=== PATIENT | female | born 2000 | race Caucasian/White ===

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

== ENCOUNTER 2022-09-20 12:19 | Emergency (ER) | payer BC, SELFPAY ==
--- NOTE | ~2022-09-20 | XR_ITS ---
XR chest 2V DATE: 09/20/2022 13:04 INDICATION: Left chest pain, shortness of breath TECHNIQUE: 2 views COMPARISON: None FINDINGS: Normal heart size. No hilar or mediastinal enlargement. No pulmonary infiltrate or consolid ation, pleural effusion or pulmonary vascular congestion or pneumothorax. Minimal thoracolumbar scoli osis. IMPRESSION: No active cardiopulmonary disease Reviewed, dictated and finalized at location B. OGRAPH TINTER
--- NOTE | 2022-09-20 12:26 | ECG_ITS ---
Measurements Intervals [place] Rate: 60 P: 55 NC: 133 QRS: 55 QRSD: 102 T: 58 QT: 361 QTc: 362 Interpretive Statements SINUS RHYTHM WITH MARKED SINUS ARRHYTHMIA BORDERLINE T WAVE ABNORMALITY- ANTERIOR LEADS BORDERLINE ECG NO PREVIOUS ECG AVAILABLE FOR COMPARISON Electronically Signed On 09-20-2022 12:31:41 LINE FIXER by Rodríguez Gresham D.O.
[2022-09-20 12:27] VITALS: BP 133/88; PULSE 70; RESP 18; TEMP 36.4; O2SAT 100
[2022-09-20 12:39] LABS: Basophils Percent Auto 0.3 % (0.2-1.2); Eosinophils Absolute Auto 0.1 K/mm3 (0-0.3); Eosinophils Percent Auto 1.3 % (0-4.4); Hematocrit 38.2 % (37.0-47.0); Hemoglobin 13.3 g/dL (12.0-15.0); Immature Granulocyte Absolute 0.02 K/mm3 (0.00-0.031); Immature Granulocyte Percent A 0.3 % (0-0.5); Lymphocytes Absolute Auto 2.47 K/mm3 (0.9-3.2); Mean Corpuscular HGB Conc 34.8 g/dl (32-36); Mean Corpuscular Hemoglobin 31.2 pg (26-34); Mean Corpuscular Volume 89.7 fl (80-100); Mean Platelet Volume 8.7 fl (7.4-10.4); Monocytes Absolute Auto 0.5 K/mm3 (0.1-0.6); Monocytes Percent Auto 6.3 % (2.6-8.5); Neutrophils Absolute Auto 4.9 K/mm3 (1.3-6.7); Neutrophils Percent Auto 60.8 % (45.5-73.1); Platelet Count Result 267 k/mm3 (150-375); Red Blood Count 4.26 M/mm3 (4.2-5.4); Red Cell Distribution Width 11.7 % (11.5-14.5)
[2022-09-20 12:51] LABS: INR 1.2; Prothrombin Time 14.7 Seconds (11.1-14.7)
[2022-09-20 12:52] LABS: Alanine Aminotransferase 14 U/L (6-35); Albumin Level 4.6 g/dL (3.5-5.1); Alkaline Phosphatase 52 U/L (38-126); Anion Gap 8 mmol/L (8-16); Aspartate Amino Transferase 19 U/L (14-36); Bilirubin,Total 0.6 mg/dL (0.2-1.3); Blood Urea Nitrogen 11 mg/dL (7-17); Calcium 9.3 mg/dL (8.4-10.2); Carbon Dioxide 29 mmol/L (22-30); Chloride 99 mmol/L (98-107); Estimated CRCL calculation 87 ml/min; Estimated Glomerular Filt Rate > 60; Glucose 108 mg/dL (65-110); Lipase 84 U/L (23-300); Partial Thromboplastin Time 34.2 SECONDS (22.3-36.8); Potassium 3.2 mmol/L (3.4-5.0); Sodium 136 mmol/L (137-145)
[2022-09-20 13:03] LABS: Troponin I < 0.012 ng/mL (0.000-0.034)
--- NOTE | 2022-09-20 14:00 | ED.CHESTPAIN ---
HPI - Chest Pain General Chief Complaint: Chest Pain Stated Complaint: chest pain Time Seen by Provider: 09/20/22 13:09 History of Present Illness HPI narrative: 22-year-old female presenting to the emergency department for evaluation of left-sided chest pain. Patient reports over the last few months she has had excessive weight loss and patient reports she has had almost daily vomiting. Patient does admit to smoking THC almost daily. Patient was educated on cannabinoid hyperemesis syndrome. Patient states over the last few days she has been having increased intermittent left-sided chest pressure. Patient denies any associated shortness of breath with this. Patient reports she does have past medical history of depression. Related Data Home Medications Medication Instructions Recorded Confirmed No Home Medications 05/01/21 05/01/21 Allergies Allergy/AdvReac Type Severity Reaction Status Date / Time No Known Allergies Allergy Verified 02/03/21 08:20 Review of Systems Review of Systems: CONSTITUTIONAL: Denies fever, chills, or sweats. EYES: Denies visual changes, redness, or discharge. ENT: Denies rhinorrhea, congestion, sore throat, or otalgia. CARDIOVASCULAR: See HPI RESPIRATORY: Denies cough or dyspnea. GASTROINTESTINAL: See HPI GENITOURINARY: Denies dysuria or hematuria. SKIN: Denies rash or itching. MUSCULOSKELETAL: Denies back pain, joint pain, or myalgia. NEUROLOGIC: Denies headache, numbness, or weakness. [facility] Past Medical History Medical History (Updated 09/20/22 @ 16:56 by Hakan Salazar MD) Depression Urinary tract infection Surgical History Surgical History No pertinent past surgical history Family History Family History Mother Recurrent urinary tract infection Social History Social History Smoking status: Current every day smoker Tobacco type: e-cigarettes/vaping Alcohol intake: never Substance use type: marijuana Other substance usage details: Marijuana socially Additional living arrangements comments: lives with boyfriend Gender identity (if verbalized by the patient): Female Sexual Orientation (if Verbalized by the Patient): Straight or Heterosexual Spiritual care concerns: No Exam Narrative: APPEARANCE: Well appearing, no pain, no distress, well-nourished. HEAD: normocephalic, atraumatic. EYES: PERRLA/EOMI, conjunctivae clear. NOSE: Normal no drainage THROAT: Pharynx clear, no exudate. NECK: Supple. No adenopathy, no masses. RESPIRATORY: Airway patent, respirations nonlabored. Clear to auscultation bilaterally, no rales, rhonchi, wheezing. CARDIOVASCULAR: Regular rate and rhythm without murmurs rubs or gallops. ABDOMINAL: Soft, nontender, nondistended, normal bowel sounds MUSCULOSKELETAL: Moves all extremities. Strength/ROM intact, No edema, No calf tenderness. NEURO: Alert. Cranial nerves II through XII intact. Grossly intact. SKIN: Warm, dry. Normal Color Course Course Emergency Course: Patient had negative serial troponins. Patient's D-dimer is negative. Patient's potassium was 3.2 and was replaced orally. Chest x-ray showed no acute cardiopulmonary normality. Vital Signs Vital signs: Vital Signs Temperature 97.5 F L 09/20/22 12:27 Pulse Rate 70 09/20/22 12:27 Respiratory Rate 18 09/20/22 12:27 Blood Pressure 133/88 09/20/22 12:27 Pulse Oximetry 100 09/20/22 12:27 Oxygen Delivery Room Air 09/20/22 12:27 Temperature 97.5 F L 09/20/22 12:27 Pulse Rate 80 09/20/22 17:20 Respiratory Rate 16 09/20/22 17:20 Blood Pressure 101/59 L 09/20/22 17:20 Pulse Oximetry 100 09/20/22 17:20 Oxygen Delivery Room Air 09/20/22 13:45 MDM - Chest Pain Lab Data Attestation: I reviewed the patient's lab results. Result diagrams: 09/20/22 12:33
[2022-09-20] MEDS: POTASSIUM CHLORIDE 20 MEQ PACKET (FOR LIQUID) 40 MEQ PO (14:33)
[2022-09-20 14:54] LABS: D Dimer 0.33 ug/mL (<0.48)
[2022-09-20 15:00] VITALS: BP 103/69; PULSE 67; RESP 16; O2SAT 97
[2022-09-20 16:20] LABS: Troponin I < 0.012 ng/mL (0.000-0.034)
[2022-09-20 17:20] VITALS: BP 101/59; PULSE 80; RESP 16; O2SAT 100
== END 2022-09-20 17:20 | disposition home or self-care (01) ==
PROVIDERS: Emergency Medicine; Emergency Provider Emergency Medicine
DX: R07.9 Chest pain, unspecified (principal); F17.209 Nicotine dependence, unspecified, with unspecified nicotine-induced disorders
CPT/HCPCS: 36415; 71046; 80053; 83690; 84484; 85025; 85380; 85610; 85730; 93005; 99284; A9270

== ENCOUNTER 2022-11-09 05:36 | Emergency (ER) | payer BC, SELFPAY ==
--- NOTE | ~2022-11-09 | US_ITS ---
EXAMINATION: US OB <=14 wk fetus w TV DATE: 11/09/2022 09:13 INDICATION: Right-sided abdominal pain TECHNIQUE: Real-time transabdominal and transvaginal obstetric ultrasound. FINDINGS: No prior studies for comparison. The uterus measures 7.9 x 6.3 x 4.8 cm. There is an intrauterine gestational sac measuring 0.95 cm. T here is a yolk sac present. No pole is identified. Right ovary is not visualized. Left ovary is unremarkable measuring 3 x 2.1 x 1.9 cm. No free fluid in the pelvis. The cervix measures 3.1 cm in length. IMPRESSION: 1. Intrauterine gestational sac with yolk sac corresponding to 5 week 5 day gestation with an estimat ed EDC of 07/07/2020 23+/-4 days. Reviewed, dictated and finalized at location A. ADVICE IMPRESSION: 1. Intrauterine gestational sac with yolk sac corresponding to 5 week 5 day ges tation with an estimated EDC of 07/07/2020 23+/-4 days.
[2022-11-09 05:39] VITALS: BP 91/71; PULSE 81; RESP 18; TEMP 36.6; O2SAT 100
[2022-11-09] MEDS: MORPHINE SULFATE (*CRX) 4 MG/ML INJ IV PUSH (06:11)
[2022-11-09] MEDS: ONDANSETRON INJ 4 MG/2 ML VIAL IV PUSH (06:11)
[2022-11-09 06:21] VITALS: BP 119/76; PULSE 62; RESP 18; O2SAT 96
[2022-11-09 06:22] LABS: Basophils Percent Auto 0.3 % (0.2-1.2); Eosinophils Absolute Auto 0.2 K/mm3 (0-0.3); Eosinophils Percent Auto 1.4 % (0-4.4); Hematocrit 38.9 % (37.0-47.0); Hemoglobin 13.9 g/dL (12.0-15.0); Immature Granulocyte Absolute 0.05 K/mm3 (0.00-0.031); Immature Granulocyte Percent A 0.4 % (0-0.5); Lymphocytes Absolute Auto 3.51 K/mm3 (0.9-3.2); Lymphocytes Percent Auto 31.1 % (18.3-44.2); Mean Corpuscular HGB Conc 35.7 g/dl (32-36); Mean Corpuscular Volume 86.6 fl (80-100); Mean Platelet Volume 8.9 fl (7.4-10.4); Monocytes Absolute Auto 0.7 K/mm3 (0.1-0.6); Monocytes Percent Auto 6.3 % (2.6-8.5); Neutrophils Absolute Auto 6.8 K/mm3 (1.3-6.7); Neutrophils Percent Auto 60.5 % (45.5-73.1); Platelet Count Result 372 k/mm3 (150-375); Red Blood Count 4.49 M/mm3 (4.2-5.4); Red Cell Distribution Width 11.5 % (11.5-14.5); White Blood Count 11.3 K/mm3 (4.5-10.0)
[2022-11-09 06:34] LABS: Alanine Aminotransferase 17 U/L (6-35); Albumin Level 4.7 g/dL (3.5-5.1); Alkaline Phosphatase 52 U/L (38-126); Anion Gap 9 mmol/L (8-16); Aspartate Amino Transferase 19 U/L (14-36); Bilirubin,Total 0.9 mg/dL (0.2-1.3); Blood Urea Nitrogen 8 mg/dL (7-17); Carbon Dioxide 22 mmol/L (22-30); Chloride 106 mmol/L (98-107); Estimated CRCL calculation 118 ml/min; Estimated Glomerular Filt Rate > 60; Glucose 131 mg/dL (65-110); Potassium 3.4 mmol/L (3.4-5.0); Sodium 137 mmol/L (137-145)
--- NOTE | 2022-11-09 06:35 | ED.ABDPAIN ---
HPI - Abdominal Pain General Chief Complaint: Abdominal Pain <Darrion Hernandez MD - Last Filed: 11/09/22 06:43> Stated Complaint: right flank pain <Darrion Hernandez MD - Last Filed: 11/09/22 06:43> Time Seen by Provider: 11/09/22 06:02 <Darrion Hernandez MD - Last Filed: 11/09/22 06:43> Source: patient and family <Darrion Hernandez MD - Last Filed: 11/09/22 06:43> Mode of arrival: ambulatory <Darrion Hernandez MD - Last Filed: 11/09/22 06:43> Limitations: no limitations <Darrion Hernandez MD - Last Filed: 11/09/22 06:43> History of Present Illness HPI narrative: 22-year-old 1 para 0 about 6 weeks of gestation here with complaints of sudden onset of right-sided abdominal pain associated with nausea. She denies any vaginal bleeding. Patient states that she did not have ultrasound as she is only 6 weeks. <Darrion Hernandez MD - Last Filed: 11/09/22 06:43> MD elicited complaint: abdominal pain <Darrion Hernandez MD - Last Filed: 11/09/22 06:43> Pertinent past history: none <Darrion Hernandez MD - Last Filed: 11/09/22 06:43> Onset (ago): hour(s) (2) <Darrion Hernandez MD - Last Filed: 11/09/22 06:43> Pain Consistency: constant <Darrion Hernandez MD - Last Filed: 11/09/22 06:43> Location: RLQ <Darrion Hernandez MD - Last Filed: 11/09/22 06:43> Severity: moderate <MD Maury Mitchell Last Filed: 11/09/22 06:43> Quality: aching <Darrion Hernandez MD - Last Filed: 11/09/22 06:43> Radiation: none <MD Maury Mitchell Last Filed: 11/09/22 06:43> Migration to: no migration <Darrion Hernandez MD - Last Filed: 11/09/22 06:43> Exacerbating factors: nothing <Darrion Hernandez MD - Last Filed: 11/09/22 06:43> Relieving factors: nothing <Darrion Hernandez MD - Last Filed: 11/09/22 06:43> Associated symptoms: denies other symptoms <Darrion Hernandez MD - Last Filed: 11/09/22 06:43> Related Data Home Medications: Home Medications Medication Instructions Recorded Confirmed No Home Medications 05/01/21 05/01/21 <Darrion Hernandez MD - Last Filed: 11/09/22 06:43> Allergies/Adverse Reactions: Allergies Allergy/AdvReac Type Severity Reaction Status Date / Time No Known Allergies Allergy Verified 11/09/22 07:13 <Darrion Hernandez MD - Last Filed: 11/09/22 06:43> Review of Systems Review of Systems: All systems reviewed & are unremarkable except as noted in HPI and below <Darrion Hernandez MD - Last Filed: 11/09/22 06:43> Constitutional: Constitutional: Reports no additional constitutional complaints <Darrion Hernandez MD - Last Filed: 11/09/22 06:43> Eyes: Eyes: Reports no additional eye complaints <Darrion Hernandez MD - Last Filed: 11/09/22 06:43> ENT: Reports system reviewed and no additional complaints, except as documented <Darrion Hernandez MD - Last Filed: 11/09/22 06:43> Cardiovascular: Cardiovascular: Reports no additional cardiovascular complaints <Darrion Hernandez MD - Last Filed: 11/09/22 06:43> Respiratory: Respiratory: Reports no additional respiratory complaints <Darrion Hernandez MD - Last Filed: 11/09/22 06:43> Gastrointestinal: Gastrointestinal: Reports as per HPI <Darrion Hernandez MD - Last Filed: 11/09/22 06:43> Musculoskeletal: Musculoskeletal: Reports no additional musculoskeletal complaints <Darrion Hernandez MD - Last Filed: 11/09/22 06:43> PMFSH Past Medical History Medical History: Medical History (Updated 11/09/22 @ 06:43 by Darrion Hernandez MD) Depression Urinary tract infection <Darrion Hernandez MD - Last Filed: 11/09/22 06:43> Surgical History Surgical History: Surgical History No pertinent past surgical history <Darrion Hernandez MD - Last Filed: 11/09/22 06:43> Family History Family History: Family History Mother Recurrent urinary tract infection <Jonathon
[2022-11-09 07:02] VITALS: BP 124/63; PULSE 64; RESP 20; O2SAT 100
[2022-11-09 07:12] VITALS: BP 124/63; PULSE 61; RESP 20; O2SAT 100
[2022-11-09 07:12] LABS: INR 1.2; Prothrombin Time 14.5 Seconds (11.1-14.7)
[2022-11-09 07:30] LABS: Add Urine Microscopic? YES; Appearance Urine Clear (Clear); Bilirubin Urine Negative (Negative); Blood Urine 2+ (Negative); Color Urine Yellow (Yellow); Glucose Urine UA Negative (Negative); Ketones Urine 3+ mg/dL (Negative); Leukocyte Esterase Ur Negative LEU/UL (Negative); Nitrate Urine Negative (Negative); Protein Urine Negative (Negative); Specific Grav Ur 1.025 (1.001-1.035); Urobilinogen Urine 0.2 mg/dL (<2.0); pH Urine 6.5 (5.0-9.0)
[2022-11-09 07:40] LABS: Bacteria Urine Trace /hpf; Mucus Urine Heavy /lpf; RBC Urine >75 /hpf (0-2); Squamous Epithelial Cell Urine Moderate /hpf (Few); WBC Urine 0-3 /hpf
[2022-11-09 09:55] VITALS: BP 113/85; PULSE 60; RESP 18; O2SAT 100
[2022-11-09 11:01] VITALS: BP 99/53; PULSE 82; RESP 18; O2SAT 100
== END 2022-11-09 11:03 | disposition home or self-care (01) ==
PROVIDERS: Family Medicine; Emergency Provider General Practice
DX: O26.891 Other specified pregnancy related conditions, first trimester (principal); R10.31 Right lower quadrant pain; O99.331 Smoking (tobacco) complicating pregnancy, first trimester; F17.290 Nicotine dependence, other tobacco product, uncomplicated; Z3A.01 Less than 8 weeks gestation of pregnancy; Z87.440 Personal history of urinary (tract) infections
CPT/HCPCS: 36415; 76801; 76817; 80053; 81001; 85025; 85610; 96374; 96375; 99284; J2270; J2405

== ENCOUNTER 2023-06-20 16:22 | Observation (INO) | payer BC, SELFPAY ==
[2023-06-20 17:27] VITALS: BMI 25.8
--- NOTE | 2023-06-20 17:53 | PC.NURSE ---
1700: Patient was wheeled by technical advisor to the [facility]. Patient was teary eyed and reported pain in her pelvic area. Patient was wheeled into 105, assisted with change into a hospital gown. Patient ambulated to the bathroom independently to void and then laid down in bed. TOCO and FHM were placed on patient's abdomen. Patient reports pain rated at a 7 in her lower abdomen area and radiates to her lower back. Patient reported that this pain is constant. Upon further investigation, patient reported that she was at [facility] ED yesterday. ED staff suspected that she had a UTI, gave her tylenol for pain, shree labs and cultures. Patient was sent home and was told that they would call antibiotics in once her cultures were back. Patient reported that she also saw her OB yesterday who did her cervical exam yesterday. She was told that she was . Patient's SO reported that they came to [facility] today because they wanted a different plan of care. Stephanie العراقي RN performed a cervical exam - 1cm, 90% effaced and -[address] Eden was notified of all assessments. Per Dr. Eden, discharge home - instruct to take Tylenol as directed by supportive employment case manager, fluidotherapy, antibiotics (which were electronically transmitted to patient preferred pharmacy), see regular OB next week. Patient was provided with instructions and discharged home at 1800.
--- NOTE | 2023-06-23 14:48 | PM.OBTRLD ---
OB - Triage/Final Diagnosis Visit Information Reason for evaluation: threatened labor Comments/Additional reasons for admission: I have assessed the risk for this patient, Sandy Minor, and determined that she would benefit from observation care.
== END 2023-06-20 18:00 | disposition home or self-care (01) ==
PROVIDERS: Admitting Provider Obstetrics & Gynecology; Visit Provider Obstetrics & Gynecology
DX: O47.1 False labor at or after 37 completed weeks of gestation (principal); Z3A.37 37 weeks gestation of pregnancy
CPT/HCPCS: G0378; G0379

== ENCOUNTER 2023-06-20 23:25 | Inpatient (IN) | payer BC, SELFPAY ==
[2023-06-21] VITALS (79 sets, daily range): BP systolic 82–252; BP diastolic 40–197; PULSE 56–210; RESP 16–20; TEMP 36.3–38.3; O2SAT 73–100; BMI 25.4
[2023-06-21] MEDS: AMPICILLIN 2 GM/NS 100 ML 2 GM/100 ML BAG IVPB ×4 (00:15→19:11)
[2023-06-21] MEDS: LACTATED RINGERS 1,000 ML 125 ML IV CONT ×2 (00:15→01:38)
[2023-06-21 00:31] LABS: Basophils Absolute Auto 0.1 K/mm3 (0.0-0.1); Basophils Percent Auto 0.2 % (0.2-1.2); Eosinophils Absolute Auto 0.1 K/mm3 (0-0.3); Eosinophils Percent Auto 0.4 % (0-4.4); Hematocrit 35.9 % (37.0-47.0); Hemoglobin 12.2 g/dL (12.0-15.0); Immature Granulocyte Absolute 0.18 K/mm3 (0.00-0.031); Immature Granulocyte Percent A 0.7 % (0-0.5); Lymphocytes Absolute Auto 0.87 K/mm3 (0.9-3.2); Lymphocytes Percent Auto 3.6 % (18.3-44.2); Mean Corpuscular Hemoglobin 29.4 pg (26-34); Mean Corpuscular Volume 86.5 fl (80-100); Mean Platelet Volume 9.3 fl (7.4-10.4); Monocytes Absolute Auto 1.3 K/mm3 (0.1-0.6); Monocytes Percent Auto 5.3 % (2.6-8.5); Neutrophils Absolute Auto 21.6 K/mm3 (1.3-6.7); Neutrophils Percent Auto 89.8 % (45.5-73.1); Platelet Count Result 408 k/mm3 (150-375); Red Blood Count 4.15 M/mm3 (4.2-5.4); Red Cell Distribution Width 11.8 % (11.5-14.5)
--- NOTE | 2023-06-21 01:19 | WPDANESEPP ---
Anes - Eval Pre Procedure Procedure: labor epidural Date/Time: 06/21/23 01:19 Surgeon: milly Preop Diagnosis: pain during labor Pre Op Diagnosis: contractions Patient Data Age: 22 Gender: F Height: 1.57 m Weight: 63 kg Last Vital Signs Pulse 196 H 06/21/23 01:16 BP 184/150 H 06/21/23 01:16 Pulse Ox 99 06/21/23 01:17 Allergies Allergy/AdvReac Type Severity Reaction Status Date / Time No Known Allergies Allergy Verified 11/09/22 07:13 Home Medications Medication Instructions Recorded Confirmed Type nitrofurantoin 100 mg PO Q12H #14 caps 06/20/23 Rx monohydrate/macrocrystals 100 mg capsule (Macrobid) Laboratory Tests 06/21/23 06/21/23 00:24 00:25 WBC 24.0 H K/mm3 (4.5-10.0) RBC 4.15 L M/mm3 (4.2-5.4) Hgb 12.2 g/dL (12.0-15.0) Hct 35.9 L % (37.0-47.0) MCV 86.5 fl (80-100) MCH 29.4 pg (26-34) MCHC 34.0 g/dl (32-36) RDW 11.8 % (11.5-14.5) Plt Count 408 H k/mm3 (150-375) MPV 9.3 fl (7.4-10.4) Immature Gran % (Auto) 0.7 H % (0-0.5) Neut % (Auto) 89.8 H % (45.5-73.1) Lymph % (Auto) 3.6 L % (18.3-44.2) [place] % (Auto) 5.3 % (2.6-8.5) Eos % (Auto) 0.4 % (0-4.4) Baso % (Auto) 0.2 % (0.2-1.2) Lymph # (Auto) 0.87 L K/mm3 (0.9-3.2) [place] # (Auto) 1.3 H K/mm3 (0.1-0.6) Eos # (Auto) 0.1 K/mm3 (0-0.3) Baso # (Auto) 0.1 K/mm3 (0.0-0.1) Abs Immat Gran (auto) 0.18 H K/mm3 (0.00-0.031) Absolute Neuts (auto) 21.6 H K/mm3 (1.3-6.7) Absolute Nucleated RBC 0.0 K/mm3 (0.0-0.012) Nucleated RBC % 0.0 % (0.0-0.2) RPR Pending Hep Bs Antigen Pending HIV 1&2 Ab/P24 Ag 4thGn Pending Rubella IgG Antibody Pending Patient hx anesthesia problems: none Family hx anesthesia problems: none Results Review: All pre-operative results and documents have been reviewed as part of the pre-operative evaluation. [facility] Past Medical History Medical History (Updated 06/21/23 @ 01:20 by Fay Satnton CRNA) Depression IUP (intrauterine ), incidental Urinary tract infection Surgical History Surgical History No pertinent past surgical history Family History Family History Mother Recurrent urinary tract infection Social History Social History Smoking status: Former smoker Tobacco type: e-cigarettes/vaping Second hand tobacco smoke exposure: No Alcohol intake: never Substance use: former Substance use type: marijuana Other substance usage details: Marijuana socially Lack of Transportation: No Lack of Food: Never True Current Housing: I Have Housing Concerned About Future Housing: No Difficulty Paying Gas/Electric Bills: No Difficulty Paying for Meds: No Currently Unemployed: No Education: Grade School Difficulty w/ Childcare or Family Care: No Additional living arrangements comments: lives with boyfriend Gender identity (if verbalized by the patient): Female Sexual Orientation (if Verbalized by the Patient): Straight or Heterosexual Spiritual care concerns: No Exam Day of Procedure 06/21/23 01:19
[2023-06-21 01:52] LABS: Alanine Aminotransferase 21 U/L (6-35); Albumin Level 4.1 g/dL (3.5-5.1); Alkaline Phosphatase 233 U/L (38-126); Anion Gap 14 mmol/L (8-16); Aspartate Amino Transferase 34 U/L (14-36); Bilirubin,Total 0.9 mg/dL (0.2-1.3); Blood Urea Nitrogen 8 mg/dL (7-17); Calcium 9.1 mg/dL (8.4-10.2); Carbon Dioxide 15 mmol/L (22-30); Chloride 100 mmol/L (98-107); Estimated CRCL calculation 118 ml/min; Estimated Glomerular Filt Rate > 60; Glucose 118 mg/dL (65-110); Potassium 3.5 mmol/L (3.4-5.0); Sodium 129 mmol/L (137-145)
[2023-06-21] MEDS: ACETAMINOPHEN 500 MG TABLET 1000 MG (01:52)
[2023-06-21 01:58] LABS: HIV 1/2 Ab P24 Ag Result Negative (Negative)
[2023-06-21] MEDS: ceFAZolin 2 GM/D5W 50 ML 2 GM/50 ML BAG IVPB (02:16)
[2023-06-21] MEDS: AZITHROMYCIN 500 MG/NS 250 ML 500 MG/250 ML BAG 250 MG IVPB (02:25)
[2023-06-21 02:30] LABS: Hepatitis B Surface Antigen Negative (Negative)
[2023-06-21 02:32] LABS: Rubella IgG Antibody 33.6 IU/ML
[2023-06-21] MEDS: OXYTOCIN 30 UNITS/NS 500 ML 30 UNITS/500 ML BAG 999 UNITS IV CONT (02:32)
--- NOTE | 2023-06-21 02:53 | PM.IMHP ---
H&P: HPI History of Present Illness Date/Time: 06/21/23 02:53 22-year-old 1 patient at 37 weeks gestation presents in active labor. Received care at another institution we have no records, she denies any abnormalities. Was at our institution earlier today and labor was ruled out and she was discharged home. At that time she was also given antibiotics for what she describes was urinary tract infection, but her other provider waiting for culture results. Chief Complaint: Review of Systems Review of Systems: All systems reviewed & are unremarkable except as noted in HPI and below PMFSH Past Medical History Medical History Depression IUP (intrauterine ), incidental Urinary tract infection Surgical History Surgical History No pertinent past surgical history Family History Family History Mother Recurrent urinary tract infection Social History Social History Smoking status: Former smoker Tobacco type: e-cigarettes/vaping Second hand tobacco smoke exposure: No Alcohol intake: never Substance use: former Substance use type: marijuana Other substance usage details: Marijuana socially Lack of Transportation: No Lack of Food: Never True Current Housing: I Have Housing Concerned About Future Housing: No Difficulty Paying Gas/Electric Bills: No Difficulty Paying for Meds: No Currently Unemployed: No Education: Grade School Difficulty w/ Childcare or Family Care: No Additional living arrangements comments: lives with boyfriend Gender identity (if verbalized by the patient): Female Sexual Orientation (if Verbalized by the Patient): Straight or Heterosexual Spiritual care concerns: No Meds Home Medications and Allergies Home Medications Medication Instructions Recorded Confirmed Type nitrofurantoin 100 mg PO Q12H #14 caps 06/20/23 Rx monohydrate/macrocrystals 100 mg capsule (Macrobid) Allergies Allergy/AdvReac Type Severity Reaction Status Date / Time No Known Allergies Allergy Verified 11/09/22 07:13 Vital Signs Vital Signs - 24 hr 06/21/23 00:16 06/21/23 00:16 06/21/23 00:21 Temperature Pulse Rate Respiratory Rate Blood Pressure Pulse Oximetry 73 L 75 L 99 06/21/23 00:26 06/21/23 00:29 06/21/23 00:30 Temperature Pulse Rate 147 H Respiratory Rate Blood Pressure 131/73 Pulse Oximetry 100 93 77 L 06/21/23 00:35 06/21/23 00:40 06/21/23 00:45 Temperature Pulse Rate 126 H Respiratory Rate Blood Pressure 124/80 Pulse Oximetry 100 99 98 06/21/23 00:50 06/21/23 00:55 06/21/23 00:59 Temperature Pulse Rate 146 H Respiratory Rate Blood Pressure 127/74 Pulse Oximetry 98 99 06/21/23 01:00 06/21/23 01:03 06/21/23 01:05 Temperature Pulse Rate 121 H 130 H 124 H Respiratory Rate Blood Pressure 134/90 124/78 123/82 Pulse Oximetry 100 99 06/21/23 01:08 06/21/23 01:09 06/21/23 01:12 Temperature Pulse Rate 151 H 210 H 150 H Respiratory Rate Blood Pressure 142/84 H 150/128 H 184/57 H Pulse Oximetry 99 98 06/21/23 01:13 06/21/23 01:16 06/21/23 01:17 Temperature Pulse Rate 112 H 196 H Respiratory Rate Blood Pressure 189/165 H 184/150 H Pulse Oximetry 99 06/21/23 01:19 06/21/23 01:21 06/21/23 01:22 Temperature Pulse Rate 138 H 192 H Respiratory Rate Blood Pressure 113/68 130/85 Pulse Oximetry 100 06/21/23 01:23 06/21/23 01:26 06/21/23 01:27 Temperature Pulse Rate 137 H 116 H Respiratory Rate Blood Pressure 146/100 H 119/103 H Pulse Oximetry 100 06/21/23 01:29 06/21/23 01:32 06/21/23 01:33 Temperature Pulse Rate 156 H 102 H 56 L Respiratory Rate Blood
--- NOTE | 2023-06-21 02:57 | WPDHPUPDATE1 ---
History and Physical Update Update Date/Time: 06/21/23 02:57 After admissions baby became tachycardic with minimal variability and decision was made to proceed with primary delivery. Patient/significant other informed and consent obtained. History and Physical has been reviewed, including an updated exam of the patient. There are NO changes in the patient's condition. Risks, benefits, and alternatives have been discussed and questions answered. Patient agrees to proceed with procedure.
--- NOTE | 2023-06-21 02:58 | P.PCNOB_ITS ---
OB - Delivery Note Procedure Procedure: Procedures Operation Date: 06/21/23 02:00 <No data on this case meets the specified criteria> Intrapartal Events: Non-Reassuring Status Induction method: None Delivery monitor: External FHT and External Uterine Route of delivery: Prior to decision for section, ACOG/SMFM labor guidelines were considered and discussed with the patient and staff. Decision made to proceed with the section.: Yes Indication for instrumentation: nonreassuring FHR tracing Specimen: Yes Quantitative Blood Loss (ml): 450 Anesthesia type: Epidural Disposition: Floor Complications: None Narrative: patient prepped and draped in usual manner for this procedure. Pfannenstiel incision was made which was then carried down to the fascia and extended bilaterally the length of the skin incision. Superiorly and inferiorly the rectus muscles were from the fascia. Peritoneum was readily entered bladder flap developed. Uterus was scored with clear fluid noted and incised bilaterally the length of the lower segment. Vertex was delivered without difficulty cord clamped cut and passed off to the waiting web services architect. Manual removal of placenta without difficulty and uterus was exteriorized. Cleared of membranes and clots and was well contracted. Uterine incision was approximated 0 Monocryl running interlocking manner with good approximation hemostasis noted. Uterus was the turned to the abdomen and uterine incision again inspected with no bleeding. All subfascial tissue was hemostatic and gutters were cleared of serosanguineous fluid and clots. Fascia was approximated using 0 Vicryl from left angle midline and the right angle to midline with good approximation noted. Subcutaneous tissue approximated using 0 plain suture and neha were then used to approximate the skin edges. Patient was sent to recovery room in stable condition. [place] Baby Weeks of gestation at delivery: 37 Infant gender: Male presentation: vertex Placenta delivery description: Manual Removal Cord Vessel Description: 3 Vessels score one minute: 4 score five minutes: 9 AMG Delivery Billing Delivery Delivery: Delivery Charge
[2023-06-21 03:28] LABS: Amphetamine Screen Urine Negative (Negative); Barbiturate Screen Urine Negative (Negative); Benzodiazepines Screen Urine Negative (Negative); Cannabinoid Screen Urine Negative (Negative); Cocaine Screen Urine Negative (Negative); Methadone Screen Urine Negative (Negative); Opiate Screen Urine Negative (Negative); Phencyclidine Screen Urine Negative (Negative)
[2023-06-21] MEDS: OXYTOCIN 30 UNITS/NS 500 ML 30 UNITS/500 ML BAG 125 UNITS IV CONT (03:45)
[2023-06-21] MEDS: HYDROmorphone HCL INJ (*CRX) 1 MG/ML SYR 0.5 MG IV PUSH (04:33)
[2023-06-21] MEDS: GENTAMICIN SULFATE INJ 315 MG in DEXTROSE 5% 100 ML 100 MG IVPB (07:05)
[2023-06-21] MEDS: GENTAMICIN SULFATE INJ 315 MG in DEXTROSE 5% 100 ML 107.88 MG IVPB (07:10)
[2023-06-21] MEDS: KETOROLAC 30 MG/ML VIAL (*BKC) IV PUSH ×2 (08:51→17:27)
--- NOTE | 2023-06-21 10:56 | PM.GYNPNOP ---
LIVESTOCK PRODUCER - A/P Postoperative Procedures: Procedures Operation Date: 06/21/23 02:00 Actual Procedure Side Surgeon p Section Not Applicable David Eden MD Time Spent With Patient Time: Total time spent is greater than 50% in coordination of care (as documented) at patient's floor/unit and/or counseling patient: Time with patient: 15 - 25 minutes LIVESTOCK PRODUCER- PN:Subj Post-Op Subjective Date/time seen: 06/21/23 10:56 S: Pain now well controlled. Minimal diet but it is tolerated. Overall feels well. O:VSS afebrile Abdomen: Positive bowel sounds soft nondistended. Fundus tender A: Doing well postoperatively with expected progression. P: 1. Increase diet and ambulation as tolerated 2. Continue antibiotics 3. Further plan based on clinical scenario LIVESTOCK PRODUCER - PN: Obj Data Vital Signs Vital Signs: Vital Signs - 24 hr 06/21/23 00:16 06/21/23 00:16 06/21/23 00:21 Temperature Pulse Rate Respiratory Rate Blood Pressure Pulse Oximetry 73 L 75 L 99 Oxygen Delivery 06/21/23 00:26 06/21/23 00:29 06/21/23 00:30 Temperature Pulse Rate 147 H Respiratory Rate Blood Pressure 131/73 Pulse Oximetry 100 93 Oxygen Delivery 06/21/23 00:35 06/21/23 00:40 06/21/23 00:45 Temperature Pulse Rate 126 H Respiratory Rate Blood Pressure 124/80 Pulse Oximetry 100 99 98 Oxygen Delivery 06/21/23 00:50 06/21/23 00:55 06/21/23 00:59 Temperature Pulse Rate 146 H Respiratory Rate Blood Pressure 127/74 Pulse Oximetry 98 99 Oxygen Delivery 06/21/23 01:00 06/21/23 01:03 06/21/23 01:05 Temperature 99.3 F Pulse Rate 121 H 130 H 124 H Respiratory Rate Blood Pressure 134/90 124/78 123/82 Pulse Oximetry 100 99 Oxygen Delivery 06/21/23 01:08 06/21/23 01:09 06/21/23 01:12 Temperature Pulse Rate 151 H 210 H 150 H Respiratory Rate Blood Pressure 142/84 H Pulse Oximetry 99 98 Oxygen Delivery 06/21/23 01:13 06/21/23 01:16 06/21/23 01:17 Temperature Pulse Rate 112 H 196 H Respiratory Rate Blood Pressure Pulse Oximetry 99 Oxygen Delivery 06/21/23 01:19 06/21/23 01:21 06/21/23 01:22 Temperature Pulse Rate 138 H 192 H Respiratory Rate Blood Pressure 113/68 130/85 Pulse Oximetry 100 Oxygen Delivery 06/21/23 01:23 06/21/23 01:26 06/21/23 01:27 Temperature Pulse Rate 137 H 116 H Respiratory Rate Blood Pressure 146/100 H Pulse Oximetry 100 Oxygen Delivery 06/21/23 01:29 06/21/23 01:32 06/21/23 01:33 Temperature Pulse Rate 156 H 102 H 56 L Respiratory Rate Blood Pressure 100/64 Pulse Oximetry 99 Oxygen Delivery 06/21/23 01:36 06/21/23 01:37 06/21/23 01:37 Temperature Pulse Rate 146 H Respiratory Rate Blood Pressure Pulse Oximetry 99 100 Oxygen Delivery 06/21/23 01:41 06/21/23 01:42 06/21/23 01:43 Temperature Pulse Rate 114 H 189 H Respiratory Rate Blood Pressure Pulse Oximetry 98 Oxygen Delivery 06/21/23 01:44 06/21/23 01:45 06/21/23 01:46 Temperature Pulse Rate 160 H Respiratory Rate Blood Pressure 252/197 H Pulse Oximetry 100 95 Oxygen Delivery 06/21/23 01:48 06/21/23 01:50 06/21/23 01:55 Temperature 99.5 F Pulse Rate 87 Respiratory Rate Blood Pressure 244/194 H Pulse Oximetry 98 98 Oxygen Delivery 06/21/23 01:52 06/21/23 01:56 06/21/23 01:58 Temperature 99.5 F Pulse Rate 135 H 111 H 134 H Respiratory Rate 16 Blood Pressure 122/64 106/55 L 106/55 L Pulse Oximetry Oxygen Delivery 06/21/23 02:00 06/21/23 02:03 06/21/23 02:05 Temperature Pulse Rate 126 H Respiratory Rate Blood Pressure 100/55 L Pulse Oximetry 100 96 Oxygen Delivery 06/21/23 02:06 06/21/23 02:08 06/21/23 02:10 Temperature Pulse Rate 155 H 130 H Respiratory Rate Blood Pressure 95/53 L 133/49 L Pulse Oximetry 96 Oxygen Delivery
[2023-06-21] MEDS: HYDROcodone/acetaminophen (*CRX) 10-325 MG TABLET 1 TAB PO (14:52)
[2023-06-21] MEDS: LORATADINE 10 MG TABLET PO (17:33)
[2023-06-21 17:45] LABS: Gentamicin Random 1.5 ug/mL (5.0-12.0)
[2023-06-21] MEDS: DEXTROSE 5%/0.45% SOD CHL 1,000 ML 125 ML IV CONT (19:10)
[2023-06-21] MEDS: IBUPROFEN 600 MG TABLET PO (22:10)
[2023-06-21] MEDS: HYDROcodone/acetaminophen (*CRX) 5-325 MG TABLET 1 TAB PO (22:10)
[2023-06-22] MEDS: AMPICILLIN 2 GM/NS 100 ML 2 GM/100 ML BAG IVPB ×4 (00:59→20:14)
[2023-06-22] MEDS: HYDROcodone/acetaminophen (*CRX) 5-325 MG TABLET 1 TAB PO ×2 (01:04→04:06)
[2023-06-22] MEDS: IBUPROFEN 600 MG TABLET PO ×4 (04:09→23:25)
[2023-06-22 04:25] LABS: Basophils Percent Auto 0.3 % (0.2-1.2); Eosinophils Percent Auto 0.3 % (0-4.4); Hematocrit 26.4 % (37.0-47.0); Hemoglobin 8.8 g/dL (12.0-15.0); Immature Granulocyte Absolute 0.09 K/mm3 (0.00-0.031); Immature Granulocyte Percent A 0.6 % (0-0.5); Lymphocytes Absolute Auto 1.68 K/mm3 (0.9-3.2); Lymphocytes Percent Auto 12.1 % (18.3-44.2); Mean Corpuscular HGB Conc 33.3 g/dl (32-36); Mean Corpuscular Hemoglobin 29.4 pg (26-34); Mean Corpuscular Volume 88.3 fl (80-100); Mean Platelet Volume 9.2 fl (7.4-10.4); Monocytes Absolute Auto 0.9 K/mm3 (0.1-0.6); Monocytes Percent Auto 6.7 % (2.6-8.5); Neutrophils Absolute Auto 11.2 K/mm3 (1.3-6.7); Platelet Count Result 294 k/mm3 (150-375); Red Blood Count 2.99 M/mm3 (4.2-5.4); Red Cell Distribution Width 12.3 % (11.5-14.5); White Blood Count 13.9 K/mm3 (4.5-10.0)
[2023-06-22] MEDS: SIMETHICONE 80 MG TAB.CHEW PO ×4 (04:31→23:25)
[2023-06-22] MEDS: DOCUSATE SODIUM 100 MG CAPSULE PO ×2 (07:07→17:47)
[2023-06-22] MEDS: MULTIVIT/MIN/PREN/FOL AC/IRON TABLET 1 TAB PO ×2 (07:07→07:30)
[2023-06-22] MEDS: POLYSACCHARIDE IRON COMPLEX 150 MG CAPSULE PO ×2 (07:07→17:47)
[2023-06-22] MEDS: HYDROcodone/acetaminophen (*CRX) 10-325 MG TABLET 1 TAB PO ×4 (07:07→23:26)
[2023-06-22 07:25] VITALS: BP 96/65; PULSE 96; RESP 15; TEMP 37.3
[2023-06-22] MEDS: GENTAMICIN SULFATE INJ 315 MG in DEXTROSE 5% 100 ML 100 MG IVPB (08:00)
--- NOTE | 2023-06-22 09:25 | WPDANLDPN2 ---
Anes-Prog Note L&D Date/Time: 06/22/23 09:25 Comfortable throughout: section Neuraxial method: epidural Epidural/Spinal procedure site: clean & non-tender Neuro status: Neuro function grossly intact. Cardiovascular status: normal Respiratory status: normal Airway patency: baseline Mental status: baseline Post-Op hydration status: normal Vital Signs: Last Vital Signs Temp 99.2 F 06/22/23 07:25 Pulse 96 06/22/23 07:25 Resp 15 06/22/23 07:25 BP 96/65 L 06/22/23 07:25 Pulse Ox 98 06/21/23 19:00 O2 Del Method Room Air 06/21/23 03:47 Pain score (VAS): 5 I/O: Intake & Output 06/21/23 06/22/23 06/22/23 23:59 07:59 15:59 Intake Total 600 600 Output Total 175 300 Balance 425 300 Post-procedural complaints: pruritis moderate, treatment effective Patient feedback: Patient satisfied with anesthetic care.
--- NOTE | 2023-06-22 09:25 | WPDANLDNPN2 ---
Anes-Prog Note L&D-Neuraxial Date/Time: 06/22/23 09:25 Neuraxial medications: epidural PF morphine Opiod-related complaints: pruritis moderate, treatment effective Patient feedback: Patient satisfied with post-operative pain management.
--- NOTE | 2023-06-22 09:47 | PM.GYNPNOP ---
GRAPHICS ARTIST - A/P Postoperative Procedures: Procedures Operation Date: 06/21/23 02:00 Actual Procedure Side Surgeon p Section Not Applicable David Eden MD Time Spent With Patient Time: Total time spent is greater than 50% in coordination of care (as documented) at patient's floor/unit and/or counseling patient: Time with patient: 15 - 25 minutes GRAPHICS ARTIST- PN:Subj Post-Op Subjective Date/time seen: 06/22/23 09:47 S: Improved from yesterday. Pain well diet well tolerated. Has passed gas, no bowel movement. O: Vital signs stable/afebrile Abdomen: Positive bowel sounds soft nondistended no guarding or rebound. Incision without erythema, neha intact. Numb. Labs: Noted A: Overall doing well. Has been afebrile since delivery, white count improved on current antibiotic regimen. P: 1. Routine /postoperative care 2. Continue IV antibiotics until tomorrow morning 3. Possible home tomorrow if patient/baby doing well 4. Will change to cephalexin (500mg q6h) in am for 10d course due to UTI/possible pyelonephritis 5. Will need neha out at pp outpatient visit in L/D Friday/Friday after discharge 6. f/u office (us or where had received care) in 2-3 weeks 7. unable to circ baby due to peds hold/should be able to perform tomorrow GRAPHICS ARTIST - PN: Obj Data Vital Signs Vital Signs: Vital Signs - 24 hr 06/21/23 12:48 06/21/23 19:00 06/22/23 07:25 Temperature 97.4 F L 98.2 F 99.2 F Pulse Rate 102 H 116 H 96 Respiratory Rate 20 18 15 Blood Pressure 108/68 100/59 L 96/65 L Pulse Oximetry 100 98 Intake/Output Intake/Output: Intake & Output 06/19/23 06/20/23 06/21/23 06/22/23 23:59 23:59 23:59 23:59 Intake Total 800 600 Output Total 225 300 Balance 575 300 Meds/Results Medications: Active Medications Generic Name Dose Route Start Last Admin Trade Name Freq PRN Reason Stop Dose Admin Acetaminophen 650 mg 06/21/23 05:44 Acetaminophen 325 Mg Tablet PO Q6H PRN Mild Pain (1-3) Hydrocodone Bitart/Acetaminophen 1 tab 06/21/23 05:44 06/22/23 07:07 Hydrocodone/Acetaminophen (*Crx) 10-325 Mg Tablet PO 1 tab Q3H PRN Administration Pain Rated 7-10 Hydrocodone Bitart/Acetaminophen 1 tab 06/21/23 05:44 06/22/23 04:06 Hydrocodone/Acetaminophen (*Crx) 5-325 Mg Tablet PO 1 tab Q3H PRN Administration Moderate Pain (4-6) Bisacodyl 10 mg 06/21/23 05:44 Bisacodyl 10 Mg Suppository RECTAL ONCE PRN Constipation Diphenhydramine HCl 25 mg 06/21/23 03:04 Diphenhydramine Hcl Inj 50 Mg/Ml Vial IV PUSH Q4H PRN Pruritis/Nausea Docusate Sodium 100 mg 06/21/23 09:00 06/22/23 07:07 Docusate Sodium 100 Mg Capsule PO 100 mg BID YRN Administration Emollient Ointment 1 applic 06/21/23 05:44 Lanolin (Lansinoh) 7.5 Gm Cream TOPICAL PRN PRN Sore Nipples Ampicillin Sodium 2 gm in 100 mls @ 200 mls/hr 06/21/23 05:00 06/22/23 07:06 Ampicillin 2 Gm/Ns 100 Ml IVPB 200 mls/hr Q6H YRN Administration Dextrose/Sodium Chloride 1,000 mls @ 125 mls/hr 06/21/23 05:44 06/21/23 19:10 Dextrose 5% Sodium Chloride 0.45% IV CONT 125 mls/hr .Q8H YRN Administration Gentamicin Sulfate 315 mg/ 107.875 mls @ 100 mls/hr 06/22/23 06:00 Dextrose IVPB Q24H YRN Ibuprofen 600 mg 06/21/23 05:44 06/22/23 04:09 Ibuprofen 600 Mg Tablet PO 600 mg Q6H PRN Administration Cramping Ketorolac Tromethamine 30 mg 06/21/23 05:44 06/21/23 17:27 Ketorolac 30 Mg/Ml Vial (*Bkc) IV PUSH 30 mg Q6H PRN Administration Pain Rated 4-6 Loratadine 10 mg 06/21/23 17:22 06/21/23 17:33 Loratadine 10 Mg Tablet PO 10 mg QAM PRN Administration itching Naloxone HCl 0.1 mg 06/21/23 05:44 Naloxone Hcl 0.4 Mg/Ml Vial IV PUSH Q2M PRN Opiate Reversal Ondansetron HCl 4 mg 06/21/23 05:44 Ondansetron Inj 4 Mg/2 Ml Vial IV PUSH Q6H PRN Nausea
--- NOTE | 2023-06-22 11:25 | PCCCNOTE ---
Recvd referral due to assess for resources. Met with pt. and [facility] Keegan. Pt. reports baby, herself, and Keegan will be living together at discharge. This is pt's first baby. Pt. reports already established with [facility] and in process of getting signed up with [employer]. Pt. reports having all necessary baby supplies. Pt. denies prior DCFS involvement. Pt. denies drug use during . and counseling resources provided to pt. Pt. reports Keegan's parents are moving in with them temporarily to assist with new baby at home. Pt. reports her family is also supportive of them. Pt. anticipates discharge home with baby on Friday. EDVIN Mendoza aware.
[2023-06-22] MEDS: RHO(D) IMMUNE GLOBULIN 300 MCG/2 ML SYRINGE IM (18:05)
[2023-06-22 20:20] VITALS: BP 98/59; PULSE 95; RESP 16; TEMP 36.4
[2023-06-23] MEDS: AMPICILLIN 2 GM/NS 100 ML 2 GM/100 ML BAG IVPB (02:12)
[2023-06-23 06:31] LABS: Estimated CRCL calculation 118 ml/min; Estimated Glomerular Filt Rate > 60
[2023-06-23 07:08] LABS: Hematocrit 26.8 % (37.0-47.0); Hemoglobin 8.9 g/dL (12.0-15.0); Mean Corpuscular HGB Conc 33.2 g/dl (32-36); Mean Corpuscular Hemoglobin 29.5 pg (26-34); Mean Corpuscular Volume 88.7 fl (80-100); Mean Platelet Volume 8.4 fl (7.4-10.4); Platelet Count Result 260 k/mm3 (150-375); Red Blood Count 3.02 M/mm3 (4.2-5.4); Red Cell Distribution Width 12.3 % (11.5-14.5)
[2023-06-23] MEDS: IBUPROFEN 600 MG TABLET PO ×3 (07:10→19:06)
[2023-06-23] MEDS: POLYSACCHARIDE IRON COMPLEX 150 MG CAPSULE PO ×2 (07:10→16:45)
[2023-06-23] MEDS: DOCUSATE SODIUM 100 MG CAPSULE PO ×2 (07:10→16:45)
[2023-06-23] MEDS: GENTAMICIN SULFATE INJ 315 MG in DEXTROSE 5% 100 ML 100 MG IVPB (07:11)
[2023-06-23] MEDS: HYDROcodone/acetaminophen (*CRX) 10-325 MG TABLET 1 TAB PO ×3 (07:11→19:06)
[2023-06-23 07:40] VITALS: BP 106/69; PULSE 100; RESP 18; TEMP 37.2; O2SAT 100
--- NOTE | 2023-06-23 11:26 | PM.OBPNVD ---
OB - PN: Subj Subjective Date/time seen: 06/23/23 11:26 Narrative: POD#2 Sandy reports doing well today. Her bleeding is command and control. Her pain is controlled. She is tolerating regular diet, voiding, passing gas, and ambulating without issues. She denies any issues with her incision. She is bottle feeding. She would like her son circumcised. OB - PN: Obj Data Labs 06/23/23 07:00 06/23/23 05:40 Labs: Laboratory Results - last 24 hr 06/22/23 06/23/23 06/23/23 03:49 05:40 07:00 WBC 11.0 H RBC 3.02 L Hgb 8.9 L Hct 26.8 L MCV 88.7 MCH 29.5 MCHC 33.2 RDW 12.3 Plt Count 260 MPV 8.4 Creatinine 0.50 L Estim Creat Clear Calc 118 Estimated GFR > 60 Blood Type O Negative Antibody Screen Negative Screen Negative Baby's Blood Type A pos Baby's PEDRO Negative Doses of RhIg Required 1 OB - PN A/P Assessment and Plan (1) S/P section: Code(s): Z98.891 - History of uterine scar from previous surgery Status: Acute (2) Urinary tract infection: Qualifiers: Hematuria presence: with hematuria Urinary tract infection type: acute cystitis Qualified Code(s): N30.01 - Acute cystitis with hematuria Code(s): N39.0 - Urinary tract infection, site not specified Status: Acute Plan day: 2 Plan: routine care and discharge home (tomorrow) Comments: - D/C IV antibiotics; switch to PO (cephalexin 500mg q6h x12 days to complete 14 days) - Will need neha out at pp outpatient visit in L/D Friday after discharge, has PP visit on 06/30 at [facility] as well - circ performed w/o issues Time Spent With Patient Time: Total time spent is greater than 50% in coordination of care (as documented) at patient's floor/unit and/or counseling patient: Review of Systems Constitutional: Constitutional: Denies chills, Denies fever(s) and Denies headache(s) Eyes: Eyes: Denies change in vision ENT: Denies dizziness and Denies headache(s) Cardiovascular: Cardiovascular: Denies chest pain, Denies palpitations and Denies dyspnea Respiratory: Respiratory: Denies cough and Denies dyspnea Gastrointestinal: Gastrointestinal: Denies nausea and Denies vomiting Genitourinary: Comments: normal bleeding Neurologic: Denies dizziness and Denies headache(s) Endocrine: Endocrine: Denies palpitations Exam Const: General: cooperative, comfortable and no acute distress Orientation/consciousness: patient oriented x3 Resp: Effort & Inspection: normal respiratory effort Auscultation: clear to auscultation bilaterally Cardio: Rate: regular rate GI: Inspection: non-distended and incision (covered with clean dressing) GI Palp: Yes abdominal tenderness (appropriate) and Yes Soft to palpation Auscultation: normal bowel sounds : Other: fundus firm Skin: General skin exam: normal color Neuro: General: patient oriented x3 Extrem: General: normal to inspection Psych: Appearance: grossly normal Affect: normal affect Attitude: cooperative
[2023-06-23 12:36] LABS: Rapid Plasma Reagin Non-Reactive (NonReactive)
[2023-06-23] MEDS: CEPHALEXIN 500 MG CAPSULE PO ×3 (13:28→23:59)
[2023-06-23 16:15] VITALS: BP 105/72; PULSE 86; RESP 16; TEMP 36.4; O2SAT 98
[2023-06-23 20:15] VITALS: BP 119/73; PULSE 104; RESP 18; TEMP 36.3
[2023-06-24] MEDS: IBUPROFEN 600 MG TABLET PO ×2 (04:45→10:42)
[2023-06-24] MEDS: HYDROcodone/acetaminophen (*CRX) 10-325 MG TABLET 1 TAB PO (04:48)
[2023-06-24] MEDS: CEPHALEXIN 500 MG CAPSULE PO ×2 (06:43→11:57)
[2023-06-24 07:30] VITALS: BP 109/62; PULSE 60; RESP 16; TEMP 36.8; O2SAT 99
[2023-06-24] MEDS: MULTIVIT/MIN/PREN/FOL AC/IRON TABLET 1 TAB PO (08:12)
[2023-06-24] MEDS: DOCUSATE SODIUM 100 MG CAPSULE PO (08:12)
[2023-06-24] MEDS: POLYSACCHARIDE IRON COMPLEX 150 MG CAPSULE PO (08:12)
--- NOTE | 2023-06-24 10:24 | PC.NURSE ---
Patient viewed the discharge video Mother & Baby Care, The First Two Weeks . Patient was given the opportunity and encouraged to ask questions. Patient verbalized understanding of information shared and has been given the mother/baby guide for home reference.
[2023-06-24] MEDS: HYDROcodone/acetaminophen (*CRX) 5-325 MG TABLET 1 TAB PO (10:42)
[2023-06-25 12:38] VITALS: BP 105/74; PULSE 108; RESP 18; TEMP 36.8; O2SAT 99
--- NOTE | 2023-06-25 14:02 | PM.OBDSVD ---
DS: Admitting Diagnosis Discharge Date 06/24/23 Admitting Diagnosis abdominal pain in uti DS: Discharge Diagnosis Discharge Diagnosis (1) S/P section: Code(s): Z98.891 - History of uterine scar from previous surgery Status: Acute (2) Urinary tract infection: Qualifiers: Hematuria presence: with hematuria Urinary tract infection type: acute cystitis Qualified Code(s): N30.01 - Acute cystitis with hematuria Code(s): N39.0 - Urinary tract infection, site not specified Status: Acute OB - DS: Summary OB Procedures : Ultrasound OB Procedures Intrapartum: low cervical, transverse OB Procedures: : None Peripartum Data Infant Delivery Method: Section Procedures: Procedures Operation Date: 06/21/23 02:00 Actual Procedure Side Surgeon p Section Not Applicable David Eden MD complications: none and UTI [place] 1: Gender: Male Disposition of : home Status at Discharge Functional status at discharge: independent ambulation Overall status at discharge: patient is back to baseline Time Spent with Patient Time attestation: Total time spent providing and/or coordinating discharge services: Time spent: Less than 30 minutes Exam Const: General: cooperative, comfortable and no acute distress Orientation/consciousness: patient oriented x3 Resp: Effort & Inspection: normal respiratory effort Auscultation: clear to auscultation bilaterally Cardio: Rate: regular rate GI: Inspection: non-distended GI Palp: No abdominal tenderness and Yes Soft to palpation Auscultation: normal bowel sounds : Other: fundus firm Skin: General skin exam: normal color Neuro: General: patient oriented x3 Extrem: General: normal to inspection Psych: Appearance: grossly normal Affect: normal affect Attitude: cooperative DS: Data Data Completed and Pending Completed studies during hospitalization: Pending at discharge 06/21/23 03:37 Surgical [PTH] Routine Discharge Plan Discharge Attending physician on discharge: Jessica Felix Consulting providers: Fay Stanton; Shayna Fernandez; Jessica Felix Discharging Clinician: Jessica Felix Anticipated Discharge Date/Time: 06/24/23 10:00 Patient Disposition: Home, Self-Care Activity: may shower, may drive after 2 weeks and pelvic rest Diet: regular Discharge Instructions: Staple removal at L&D PP visit on 06/25/23, staple removal kit given to mother. Education: Mom and Baby Guide Given to: Mother Follow-Up: Call your delivering provider's office for an appointment to be seen in: 4 Weeks Mom and baby should come to the [facility] for the follow-up appointment. Appointment Date/Time: June 25, 2023 at 12:30 pm What to expect at your follow-up visit: Blood Pressure Check Physical Assessment Removal of Michela Call [phone] if you are unable to keep your appointment time. BREAST CARE: * Wear a snug supportive bra. * Bottle Feeding: * May apply ice packs ABDOMINAL INCISION: * Allow incision to air dry * Do NOT use lotions for powders on your incision * When showering, allow soap and water to run over the incision, but do not wash incision EPISIOTOMY/PERINEAL CARE: * Until bleeding stops, use your lazaro bottle after urinating * Change your pad frequently throughout the day * You may take sitz baths several times a day (fill your bathtub with warm water and soak for 20 minutes.) Do NOT bathe in the water * No tub baths until seen by your physician - You may shower ACTIVITY: * Rest as much as possible. * Do not exercise or lift anything heavier than your baby (such as laundry or other children.) * Avoid stairs or driving as much as possible. * Do not put anything into the vagina. No douching, tampons, or sexual activity until seen by physician.
== END 2023-06-24 12:16 | disposition home or self-care (01) | DRG 540 ==
LOC: ANHLDR 06-21 03:04 → ANHOBPP 06-21 05:42 → ANHOB2 06-21 15:33
PROVIDERS: Admitting Provider Obstetrics & Gynecology; Visit Provider Obstetrics & Gynecology
PROC: 10D00Z1 Extraction of Products of Conception, Low, Open Approach (ICD-10-PCS; CPT 59514; principal; 2023-06-21 02:00)
DX: O75.3 Other infection during labor (principal); O41.1230 Chorioamnionitis, third trimester, not applicable or unspecified; O24.429 Gestational diabetes mellitus in childbirth, unspecified control; N39.0 Urinary tract infection, site not specified; O36.8330 Maternal care for abnormalities of the fetal heart rate or rhythm, third trimester, not applicable or unspecified; Z37.0 Single live birth; Z3A.37 37 weeks gestation of pregnancy
CPT/HCPCS: 36415; 80053; 80170; 80307; 82565; 85025; 85027; 85461; 86592; 86703; 86762; 86850; 86900; 86901; 87340; 88307; 90384; A9270; G0378; G0379; G0432; J0290; J0456; J0690; J1170; J1580; J1885; J2175; J2274; J2405; J2590; J2704; J2790; J2795; J7120

== ENCOUNTER 2023-12-11 12:55 | Emergency (ER) | payer MEDICAID, SELFPAY ==
--- NOTE | 2023-12-11 13:06 | ED.URI ---
HPI - URI/Sore Throat General Chief Complaint: Upper Respiratory Infection Stated Complaint: Sinus/Eyes Irritation Time Seen by Provider: 12/11/23 13:07 Source: patient Mode of arrival: ambulatory Limitations: no limitations History of Present Illness HPI Narrative: Patient is a 23-year-old female who presents with 3 weeks of sinus congestion pressure. Patient has been taking DayQuil and NyQuil with mild relief. Reports right eye irritation and drainage that started today. Eye was matted shut this morning. Denies any change in vision. Related Data Allergies Allergy/AdvReac Type Severity Reaction Status Date / Time No Known Allergies Allergy Verified 12/11/23 13:26 Review of Systems Review of Systems: All systems reviewed & are unremarkable except as noted in HPI and below Constitutional: Constitutional: Denies body ache(s), Denies chills, Denies fatigue, Denies fever(s), Denies headache(s), Denies malaise and Denies weakness Eyes: Eyes: Denies blurry vision, Reports eye discharge, Reports irritation, Reports itchy eyes and Denies loss of vision ENT: Denies otalgia, Denies headache(s), Reports nasal congestion, Reports sinus pain, Reports sinus pressure and Denies sore throat Cardiovascular: Cardiovascular: Denies chest pain, Denies irregular heart rhythm and Denies dyspnea Respiratory: Respiratory: Reports cough and Denies dyspnea Gastrointestinal: Gastrointestinal: Denies abdominal pain, Denies diarrhea, Denies nausea and Denies vomiting Musculoskeletal: Musculoskeletal: Denies back pain, Denies myalgias and Denies arthralgias Integumentary/Breasts: Skin/Breast: Denies pruritus and Denies rash Neurologic: Denies headache(s), Denies loss of vision and Denies weakness Psychiatric: Psychiatric: Reports no additional psychiatric complaints Endocrine: Endocrine: Denies fatigue Allergic/Immunologic: Allergic/Immunologic: Denies itchy eyes PMFSH Past Medical History Medical History Depression IUP (intrauterine ), incidental Urinary tract infection Surgical History Surgical History No pertinent past surgical history Family History Family History Mother Recurrent urinary tract infection Social History Social History Smoking status: Former smoker Tobacco type: e-cigarettes/vaping Second hand tobacco smoke exposure: No Alcohol intake: never Substance use: former Substance use type: marijuana Other substance usage details: Marijuana socially Lack of Transportation: No Lack of Food: Never True Current Housing: I Have Housing Concerned About Future Housing: No Difficulty Paying Gas/Electric Bills: No Difficulty Paying for Meds: No Currently Unemployed: No Education: Grade School Difficulty w/ Childcare or Family Care: No Additional living arrangements comments: lives with boyfriend Gender identity (if verbalized by the patient): Female Sexual Orientation (if Verbalized by the Patient): Straight or Heterosexual Spiritual care concerns: No Comments At time of signature, agree with nursing past medical, surgical, social and family history. There is no relevant family history pertinent to the presenting complaint. Exam Const: General: cooperative, healthy appearing, comfortable, no acute distress and well nourished Nutritional Appearance: well nourished Orientation/consciousness: patient oriented x3 Limitations: no limitations HENMT: Head: normal to inspection, normocephalic and atraumatic Ears: hearing grossly normal bilaterally, external ears normal, TM's normal bilaterally, EAC's normal and no periauricular adenopathy Face/Nose/Sinus: Normal external nose present, Abnormal mucous membranes and turbinates present erythematous bilateral a
[2023-12-11 13:07] VITALS: BP 122/67; PULSE 112; RESP 16; TEMP 37.2; O2SAT 100
== END 2023-12-11 13:35 | disposition home or self-care (01) ==
PROVIDERS: Emergency Provider Nurse Practitioner Family
DX: J01.40 Acute pansinusitis, unspecified (principal); H10.33 Unspecified acute conjunctivitis, bilateral; Z87.891 Personal history of nicotine dependence
CPT/HCPCS: 99213; G0463

== ENCOUNTER 2024-04-26 09:54 | Emergency (ER) | payer BC, SELFPAY ==
--- NOTE | ~2024-04-26 | XR_ITS ---
Left elbow Technique: AP, oblique, and lateral views were obtained. Clinical History: Pain Findings: No acute fracture or dislocation is seen. Osseous alignment is anatomic. Joint spaces are p reserved. There is no displacement of the fat pads, and soft tissues are unremarkable. Impression: Unremarkable radiographs. Reviewed, dictated and finalized at location . Impression: Unremarkable radiographs.
[2024-04-26 09:59] VITALS: BP 149/92; PULSE 106; RESP 18; TEMP 36.4; O2SAT 99
--- NOTE | 2024-04-26 12:16 | ED.FALL ---
HPI - Fall General Chief Complaint: Fall Stated Complaint: fell down stairs, left elbow pain Time Seen by Provider: 04/26/24 12:04 Source: patient and RN notes reviewed Mode of arrival: ambulatory Limitations: no limitations History of Present Illness HPI Narrative: This is a 23 year old female who presents for evaluation of left elbow pain and back pain s/p fall. She state she accidentally slipped on the stairs and she fell backwards going down flight of stairs. She reports she landed of her lower back and left arm. She denies hitting her head or LOC. She denies headache or back pain. She reports most of her pain is located to left elbow. She reports pain to left shoulder that started before the fall. She denies rib pain, shortness of breath. She has not taking any medication for her pain. MD complaint: fall Related Data Allergies Allergy/AdvReac Type Severity Reaction Status Date / Time No Known Allergies Allergy Verified 04/26/24 09:57 Review of Systems Constitutional: Constitutional: Denies weakness Cardiovascular: Cardiovascular: Denies syncope, Denies rapid heart rate, Denies irregular heart rhythm, Denies leg edema and Denies dyspnea Respiratory: Respiratory: Denies chest congestion, Denies hemoptysis, Denies excessive phlegm production and Denies dyspnea Gastrointestinal: Gastrointestinal: Denies abdominal pain, Denies hematochezia, Denies diarrhea and Denies vomiting Genitourinary: Genitourinary: Denies hematuria and Denies dysuria Musculoskeletal: Musculoskeletal: Reports back pain, Reports arthralgias (left elbow), Denies joint swelling, Denies loss of height and Denies muscle weakness Neurologic: Denies syncope, Denies focal weakness and Denies weakness [facility] Past Medical History Medical History Depression IUP (intrauterine ), incidental Urinary tract infection Surgical History Surgical History No pertinent past surgical history Family History Family History Mother Recurrent urinary tract infection Social History Social History Smoking status: Former smoker Tobacco type: e-cigarettes/vaping Second hand tobacco smoke exposure: No Alcohol intake: never Substance use: former Substance use type: marijuana Other substance usage details: Marijuana socially Lack of Transportation: No Lack of Food: Never True Current Housing: I Have Housing Concerned About Future Housing: No Difficulty Paying Gas/Electric Bills: No Difficulty Paying for Meds: No Currently Unemployed: No Education: Grade School Difficulty w/ Childcare or Family Care: No Additional living arrangements comments: lives with boyfriend Gender identity (if verbalized by the patient): Female Sexual Orientation (if Verbalized by the Patient): Straight or Heterosexual Spiritual care concerns: No Exam Const: General: no acute distress and alert Nutritional Appearance: well nourished Orientation/consciousness: patient oriented x3 HENMT: Head: normal to inspection Face/Nose/Sinus: Normal external nose present Face and sinus: normal facial exam Mouth: Yes Normal oral and palatal mucosa present, Yes lip normal and Yes moist mucous membranes Throat: posterior oropharynx normal and uvula midline Eyes: EOM: EOMs intact bilaterally Neck: Neck: normal visual inspection, no lymphadenopathy and no meningeal signs Chest: Chest palpation & inspection: normal inspection of the chest and no tenderness Resp: Effort & Inspection: normal respiratory effort Auscultation: clear to auscultation bilaterally Cardio: Rate: regular rate Rhythm: regular rhythm Heart sounds: no murmurs GI: Auscultation: normal bowel sounds : General: Yes no CVA tenderness Back/Spine/Pelvis: Cer
[2024-04-26] MEDS: IBUPROFEN 600 MG TABLET PO (12:23)
== END 2024-04-26 12:40 | disposition home or self-care (01) ==
LOC: ANHED 12:24
PROVIDERS: Emergency Provider General Practice
DX: S30.0XXA Contusion of lower back and pelvis, initial encounter (principal); M25.522 Pain in left elbow; Z87.891 Personal history of nicotine dependence; W10.9XXA Fall (on) (from) unspecified stairs and steps, initial encounter
CPT/HCPCS: 73080; 99283; A4565; A9270

== ENCOUNTER 2024-06-20 08:21 | Emergency (ER) | payer BC, SELFPAY ==
--- NOTE | ~2024-06-20 | XR_ITS ---
EXAMINATION: XR ankle RT min 3V DATE: 06/20/2024 08:42 INDICATION: Right ankle injury TECHNIQUE: Anteroposterior, oblique, mortise, and lateral views of the right ankle were obtained. COMPARISON: None. FINDINGS: Negligible displacement of a transverse fracture across the lateral malleolus slightly distal to the level of the tibiotalar joint line. Alignment remains essentially anatomic. No other fractures identi fied. Joint spaces are normal. Moderate-sized ankle joint effusion. Soft tissue swelling about the la teral malleolus. IMPRESSION: 1. Nondisplaced العرقاي type A fracture across the lateral malleolus. Reviewed, dictated and finalized at location A. IMPRESSION: 1. Nondisplaced العراقي type A fracture across the lateral malleolus.
[2024-06-20 08:24] VITALS: BP 123/84; PULSE 97; RESP 16; TEMP 36.8; O2SAT 98
--- NOTE | 2024-06-20 08:42 | ED.GENADULT ---
HPI - General Adult General Chief complaint: Extremity Injury, Lower Stated complaint: R foot injury Time Seen by Provider: 06/20/24 08:24 History of Present Illness HPI narrative: 23-year-old female presenting to the emergency department for evaluation for a right ankle injury. Patient states she had been drinking last night and rolled her ankle. Patient went to bed and woke up this morning and was having difficulty with weight-bearing. Patient denies any other pain or injury. Patient denies striking head denies loss consciousness. Related Data Allergies Allergy/AdvReac Type Severity Reaction Status Date / Time No Known Allergies Allergy Verified 06/20/24 08:26 Review of Systems Review of Systems: All systems reviewed & are unremarkable except as noted in HPI and below PMFSH Past Medical History Medical History Depression IUP (intrauterine ), incidental Urinary tract infection Surgical History Surgical History No pertinent past surgical history Family History Family History Mother Recurrent urinary tract infection Social History Social History Smoking status: Former smoker Tobacco type: e-cigarettes/vaping Second hand tobacco smoke exposure: No Alcohol intake: never Substance use: former Substance use type: marijuana Other substance usage details: Marijuana socially Lack of Transportation: No Lack of Food: Never True Current Housing: I Have Housing Concerned About Future Housing: No Difficulty Paying Gas/Electric Bills: No Difficulty Paying for Meds: No Currently Unemployed: No Education: Grade School Difficulty w/ Childcare or Family Care: No Additional living arrangements comments: lives with boyfriend Gender identity (if verbalized by the patient): Female Sexual Orientation (if Verbalized by the Patient): Straight or Heterosexual Spiritual care concerns: No Exam Narrative: APPEARANCE: Well appearing, no pain, no distress, well-nourished. HEAD: normocephalic, atraumatic. EYES: PERRLA/EOMI, conjunctivae clear. NOSE: Normal no drainage RESPIRATORY: Airway patent, respirations nonlabored. Clear to auscultation bilaterally, no rales, rhonchi, wheezing. CARDIOVASCULAR: Regular rate and rhythm without murmurs rubs or gallops. ABDOMINAL: Soft, nontender, nondistended, normal bowel sounds MUSCULOSKELETAL: No proximal tib-fib tenderness on the right. Patient does have right lateral malleolus swelling and tenderness. Distal pulses intact. NEURO: Alert. Cranial nerves II through XII intact. Good gait. Good coordination SKIN: Warm, dry. Normal Color Course Course Emergency Course: Patient was discharged to home with orthopedic follow-up Vital Signs Vital signs: Vital Signs Temperature 98.2 F 06/20/24 08:24 Pulse Rate 97 06/20/24 08:24 Respiratory Rate 16 06/20/24 08:24 Blood Pressure 123/84 06/20/24 08:24 Pulse Oximetry 98 06/20/24 08:24 Temperature 98.2 F 06/20/24 08:24 Pulse Rate 97 06/20/24 08:24 Respiratory Rate 16 06/20/24 08:24 Blood Pressure 123/84 06/20/24 08:24 Pulse Oximetry 98 06/20/24 08:24 Medical Decision Making MDM Narrative Medical decision making narrative: 23-year-old female presenting to the emergency department for evaluation for an injury to her right ankle. X-ray did show a nondisplaced lateral malleolus fracture. Patient was placed in a posterior short-leg splint provided crutches for limited weight-bearing. Patient was advised to take ibuprofen for pain control and is being provided Flexeril and [place] for additional pain control. Patient was encouraged of close follow-up with Orthopedics. All questions concerns were addressed. Differential Diagnosis Different
[2024-06-20] MEDS: CYCLOBENZAPRINE HCL 10 MG TABLET PO (08:58)
[2024-06-20] MEDS: ACETAMINOPHEN 500 MG TABLET 1000 MG PO (08:58)
== END 2024-06-20 09:20 | disposition home or self-care (01) ==
PROVIDERS: Emergency Provider Emergency Medicine
DX: S82.64XA Nondisplaced fracture of lateral malleolus of right fibula, initial encounter for closed fracture (principal); Z87.440 Personal history of urinary (tract) infections; Z87.891 Personal history of nicotine dependence; X50.9XXA Other and unspecified overexertion or strenuous movements or postures, initial encounter
CPT/HCPCS: 29515; 73610; 99284; A9270

== ENCOUNTER 2025-05-12 19:13 | Emergency (ER) | payer BC, SELFPAY ==
[2025-05-12 19:24] VITALS: BP 136/91; PULSE 102; RESP 16; TEMP 37.3; O2SAT 100
--- NOTE | 2025-05-12 19:26 | ED_ITS ---
HPI - URI/Sore Throat General Chief Complaint: Upper Respiratory Infection Stated Complaint: Sinus Time Seen by Provider: 05/12/25 19:26 Source: patient Mode of arrival: ambulatory Limitations: no limitations History of Present Illness HPI Narrative: 24 yo F presents with c/o congestion, sinus pain for approx. 1 wk. Blowing nose frequently and drainage changed from clear to yellowish green. Today feeling fatigued. Taking OTC dayquil/nyquil with no relief. Denies shortness of breath or chest pain. All systems reviewed and negative except as noted above. Related Data Home Medications ?Medication ?Instructions ?Recorded ?Confirmed ?Last Taken ?Type etonogestrel 68 mg subdermal subdermal 05/12/25 Unknown History implant (Nexplanon) Allergies Allergy/AdvReac Type Severity Reaction Status Date / Time No Known Allergies Allergy Verified 05/12/25 19:45 Review of Systems Review of Systems: CONSTITUTIONAL: Denies fever, chills, or sweats. reports fatigue. EYES: Denies visual changes, redness, or discharge. ENT: Reports rhinorrhea, congestion, sinus pressure. Denies sore throat, or otalgia. CARDIOVASCULAR: Denies chest pain, palpitations, or edema. RESPIRATORY: Reports cough. Denies dyspnea. GASTROINTESTINAL: Denies abdominal pain, nausea, vomiting, or diarrhea. GENITOURINARY: Denies dysuria or hematuria. SKIN: Denies rash or itching. MUSCULOSKELETAL: Denies back pain, joint pain, or myalgia. NEUROLOGIC: Denies headache, numbness, or weakness. PSYCHIATRIC: Denies anxiety or depression. All other systems reviewed are negative, except as documented in HPI. [facility] Past Medical History Medical History Depression IUP (intrauterine ), incidental Urinary tract infection Surgical History Surgical History No pertinent past surgical history Family History Family History Mother Recurrent urinary tract infection Unknown Hypertension Depression Diabetes mellitus High cholesterol Cerebrovascular accident Social History Social History Smoking status: Current every day smoker Tobacco type: e-cigarettes/vaping Second hand tobacco smoke exposure: No Alcohol intake: current Substance use: former Substance use type: marijuana Other substance usage details: Marijuana socially Lack of Transportation: No Lack of Food: Never True Current Housing: I Have Housing Concerned About Future Housing: No Difficulty Paying Gas/Electric Bills: No Difficulty Paying for Meds: No Currently Unemployed: No Education: Grade School Difficulty w/ Childcare or Family Care: No Additional living arrangements comments: lives with boyfriend Gender identity (if verbalized by the patient): Female Sexual Orientation (if Verbalized by the Patient): Straight or Heterosexual Spiritual care concerns: No Comments At time of signature, agree with nursing past medical, surgical, social and family history. There is no relevant family history pertinent to the presenting complaint. Exam Narrative: GENERAL: This is a well-nourished, well-developed patient, ill-appearing but in no acute distress. HEAD: normocephalic, atraumatic. EYES: PERRL. Sclera clear/white. Vision is grossly intact. EARS: External ears normal, auditory canals clear and without drainage, TMs normal without perforation. Hearing grossly intact. NOSE: External nose normal with congestion, erythema and swelling to bilateral nares. Maxillary sinus tenderness on palpation. THROAT: Mucous membranes moist, Erythematous with postnasal drainage NECK: Neck supple, non-tender without lymphadenopathy, masses or thyromegaly. CARDIOVASCULAR: Regular rate and rhythm without murmurs, gallops, or rubs. RESPIRATORY: Clear to auscultation. Breath sounds equal bilaterally. No wheezes, rales, or rhonchi. SKIN: warm, Dry, intact with no suspicious lesions or rash, good texture and turgor. NEURO: awake, alert, and oriented to person, place and time. There were no obvious focal neurologic abnormalities. EXTREMITIES: No joint tenderness, effusion, or edema noted. Course Course Level of Care: Express Care Visit Vital Signs Vital signs: Vital Signs Temperature 37.3 C 05/12/25 19:24 Pulse Rate 102 H 05/12/25 19:24 Respiratory Rate 16 05/12/25 19:24 Blood Pressure 136/91 H 05/12/25 19:24 Pulse Oximetry 100 05/12/25 19:24 Oxygen Delivery Room Air 05/12/25 19:24 Temperature 37.3 C 05/12/25 19:24 Pulse Rate 102 H 05/12/25 19:24 Respiratory Rate 16 05/12/25 19:24 Blood Pressure 136/91 H 05/12/25 19:24 Pulse Oximetry 100 05/12/25 19:24 Oxygen Delivery Room Air 05/12/25 19:24 Reviewed MDM - URI/Sore Throat MDM Narrative Medical decision making narrative: treat patient for bacterial sinusitis due to duration of symptoms and exam findings. Clear to auscultation. Patient is alert, nontoxic. Agrees with plan of care. Differential Diagnosis Differential diagnosis: Likely upper respiratory infection, sinusitis and viral infection Discharge Plan Discharge Clinical Impression: Acute bacterial sinusitis Patient Disposition: Home Condition: Stable Instructions: Antibiotic Form Additional Instructions: take medications as prescribed. Take ibuprofen or Tylenol every 6-8 hours as needed for pain. Drink at least 64 oz of water a day. See your doctor if symptoms are not improving. Patient Language: [place] Prescriptions: New benzonatate 200 mg capsule 200 mg PO TID PRN (Reason: cough) Qty: 20 0RF amoxicillin 875 mg tablet 875 mg PO Q12H 7 Days Qty: 14 0RF Claritin-D 12 Hour 5-120 mg tablet extended release 12 hr 1 tablet PO Q12H PRN (Reason: sinus symptoms) Qty: 20 0RF No Action Nexplanon 68 mg implant SUBDERMAL Follow-up/Referrals: PHYSICIAN,LIBRARY CIRCULATION TECHNICIAN [Primary Care Provider] - Time of Disposition: 19:43
== END 2025-05-12 19:57 | disposition home or self-care (01) ==
PROVIDERS: Emergency Provider Nurse Practitioner Family
DX: J01.90 Acute sinusitis, unspecified (principal); F17.290 Nicotine dependence, other tobacco product, uncomplicated
CPT/HCPCS: 99213; G0463